=== PATIENT | male | born 1965 | race Hispanic/Latino ===

== ENCOUNTER 2018-01-08 17:56 | Inpatient (IN) | payer MEDICAID ==
[2018-01-08 17:57] VITALS: BMI 21.9
[2018-01-08] MEDS ORDERED: Sodium Chloride 0.9% 0 ML ONE (18:13)
[2018-01-08] MEDS ORDERED: Iodixanol 320 MG/ML 100 ML BOTTLE IV ONE (18:14)
--- NOTE | 2018-01-08 18:18 | C.PDOC ---
History Of Present Illness 52 y/o male brought in by ambulance for evaluation after seizure. Family states the patient had just showered and was standing on a chair when he suddenly became contracted and began shaking, and fell off the chair. EMS was then called at 17:15 at onset of symptoms. Family witnessed the fall but are not sure if patient hit his head directly. Of note, patient had a stroke last February with some resulting weakness. When EMS arrived patient had stable vitals but was not answering questions or responding to commands. Ketamine 80 mg was given in the field. On arrival to the ED patient is awake and responds to verbal stimuli but not following commands. Time Seen by Provider: 01/08/18 18:04 Chief Complaint (Nursing): Altered Mental Status History Per: Patient History/Exam Limitations: Clinical Condition Onset/Duration Of Symptoms: Mins (x 45) Current Symptoms Are (Timing): Still Present Exacerbating Factor(s): Unknown Past Medical History Reviewed: Historical Data, Nursing Documentation, Vital Signs Vital Signs: Last Vital Signs Temp 98.5 F 01/08/18 18:27 Pulse 107 H 01/08/18 18:27 Resp 20 01/08/18 18:27 BP 141/85 01/08/18 18:31 Pulse Ox 98 01/08/18 18:57 - Medical History PMH: Asthma, CVA Denies: Chronic Kidney Disease - [facility] Procedures EXERCISE TREATMENT OF MUSCULOSK WHOLE USING ASSIST EQUIPMENT (04/14/17) GAIT TRAINING/AMBULAT TREATMENT USING ASSIST EQUIPMENT (04/14/17) GROOMING/PERSONAL HYGIENE TREATMENT USING ASSIST EQUIPMENT (04/14/17) Family History: States: No Known Family Hx - Social History Hx Alcohol Use: Yes Hx Substance Use: Yes Review Of Systems Review Of Systems: ROS cannot be obtained secondary to pt's inabilty to answer questions. Physical Exam - Physical Exam Skin: Warm, Dry Head: Atraumatic, Normacephalic Eye(s): bilateral: Normal Inspection, PERRL, EOMI Nose: Normal Oral Mucosa: Moist Neck: Normal ROM, Supple Chest: Symmetrical Cardiovascular: Rhythm Regular Respiratory: Normal Breath Sounds, No Rales, No Rhonchi, No Wheezing Gastrointestinal/Abdominal: Soft, No Tenderness, No Distention Extremity: No Deformity, No Swelling, Other (Non-purposeful movement of extremities) Pulses: Left Dorsalis Pedis: Normal, Right Dorsalis Pedis: Normal Neurological/Psych: Other (Awake, alert, verbal) Gait: Unable To Assess Other Neurological Findings: No Facial Palsy ED Course And Treatment - Laboratory Results Result Diagrams: 01/08/18 18:43 01/08/18 18:43 O2 Sat by Pulse Oximetry: 98 (RA) Pulse Ox Interpretation: Normal Critical Care Time - Critical Care Note Total Time (in mins): 60 Documented critical care: time excludes all time spent performing seperately billable procedures. NIHSS Stroke Scale - Date/Time Evaluation Performed Date Performed: 01/08/18 Time Performed: 18:04 When Was NIHSS Performed: Baseline - How Severe is the Stoke Level of Consciousness: 0=Alert LOC to Questions: 0=Both comments correct LOC to commands: 0=Obeys both correctly Best Gaze: 0=Normal Visual: 0=No visual loss Facial: 1=Minor asymmetry Motor Arm - Left: 2=Falls before 10 sec Motor Arm - Right: 0=No drift Motor Leg - Left: 2=Falls before 5 sec Motor Leg - Right: 0=No drift Limb Ataxia: 1=Present Upper or Lower Sensory: 0=Normal Best Language: 0=No aphasia Dysarthia: 1=Mild to moderate slurring Extinction & Inattention (Neglect): 0=Normal, no object Score: 7 Severity Of Stroke: 5-15= Moderate Stroke rTPA Inclusion/Exclusion - Refusal of Treatment Patient Refused Treatment: No - Inclusion Criteria for Altepase Patient is 18 years or Older: Yes Clinical DX Ischemic Stroke Cause Neurological Deficit: No Time of Onset Established Less Than 270 Mins Before TX Begin: Yes Risk/Benefit Discussed With Patient/Family Member Present: No Medical Decision Making Medical Decision Makin Stroke Alert called Orders placed: * Blood type and screen * CMP * Lipid Panel * Troponin I * HbA1c * CBC * PTT * PT * Chest x-ray * EKG * CT Head * CTA Head/Neck * Stroke Team paged [phone] Discussed w/ Dr. Vasquez, patient is not a candidate for tPA. Requests patient be admitted to tele, and will have EEG in the AM. Disposition - Disposition Disposition Time: 19:20 Condition: FAIR Forms: [employer] (Ukrainian) - Clinical Impression Clinical Impression: Seizure-like activity, CVA, old, hemiparesis - Scribe Statement The provider has reviewed the documentation as recorded by the Galilea Tapia Provider Attestation: All medical record entries made by the Scribe were at my direction and personally dictated by me. I have reviewed the chart and agree that the record accurately reflects my personal performance of the history, physical exam, medical decision making, and the department course for this patient. I have also personally directed, reviewed, and agree with the discharge instructions and disposition.
[2018-01-08 18:46] LABS: BASO # 0.1 K/uL (0.0-0.2); BASO % 0.9 % (0.0-2.0); EOS # 0.2 K/uL (0.0-0.7); EOS % 1.4 % (0.0-4.0); HEMOGLOBIN 13.2 g/dL (12.0-18.0); LYMPH # 3.1 K/uL (1.0-4.3); LYMPH % 22.7 % (20.0-40.0); MEAN CELL VOLUME 90.9 fL (80.0-94.0); MEAN CORPUSCULAR HEMOGLOBIN 30.6 pg (27.0-31.0); MEAN CORPUSCULAR HGB CONC 33.7 g/dL (33.0-37.0); MEAN PLATELET VOLUME 7.8 fL (7.2-11.7); MONO # 0.9 K/uL (0.0-0.8); MONO % 6.6 % (0.0-10.0); NEUT # 9.4 K/uL (1.8-7.0); NEUT % 68.4 % (50.0-75.0); RBC 4.31 Mil/uL (4.40-5.90); WHITE BLOOD COUNT 13.8 K/uL (4.8-10.8)
--- NOTE | 2018-01-08 18:47 | CT ---
PROCEDURE: CT HEAD WITHOUT CONTRAST. HISTORY: Code Stroke COMPARISON: None available. TECHNIQUE: Axial computed tomography images were obtained through the head/brain without intravenous contrast. Radiation dose: Total exam DLP = 1583.25 mGy-cm. This CT exam was performed using one or more of the following dose reduction techniques: Automated exposure control, adjustment of the mA and/or kV according to patient size, and/or use of iterative reconstruction technique. FINDINGS: HEMORRHAGE: No intracranial hemorrhage. BRAIN: Examination is compromised by excessive motion artifact despite multiple series being performed to attempt a counter motion. A large mid to inferior right MCA sub distribution chronic infarct is identified with prominent cystic encephalomalacia affecting majority of the right temporal lobe and limited portion of the posterior right frontal lobe. Minimal involvement of the right parietal lobe is suggested anteroinferiorly as well VENTRICLES: Unremarkable. No hydrocephalus. CALVARIUM: Unremarkable. PARANASAL SINUSES: Unremarkable as visualized. No significant inflammatory changes. MASTOID AIR CELLS: Unremarkable as visualized. No inflammatory changes. OTHER FINDINGS: None. IMPRESSION: Limited examination due to motion artifacts. A large right sub MCA chronic infarct is identified with no definitive intracranial hemorrhage or mass effect appreciated. No obvious pattern of acute separate brain infarction identified however the study is limited as discussed above. No gross intracranial hemorrhage appreciable. Performing and reformatting added series has extended the normal processing time for this CT examination. Findings discussed with Dr. Fernandez with written down and read back verification 01/08/2018 6:38 p.m..
[2018-01-08 18:54] LABS: PROTHROMBIN TIME 10.8 SECONDS (9.7-12.2)
[2018-01-08 18:59] LABS: ALB/GLOB RATIO 1.2 (1.0-2.1); ALBUMIN 3.4 g/dL (3.5-5.0); ALT/SGPT 18 U/L (21-72); AST/SGOT 19 U/L (17-59); BLOOD UREA NITROGEN 10 mg/dL (9-20); CALCIUM 8.1 mg/dl (8.6-10.4); GFR AFRICAN-AMERICAN > 60; GFR NON-AFRICAN AMERICAN > 60; HDL CHOLESTEROL 47 mg/dL (30-70)
[2018-01-08 19:10] LABS: LDL CHOLESTEROL 82 mg/dL (0-129)
[2018-01-08] MEDS ORDERED: Valproate 1,000 MG in Sodium Chloride 0.9% 100 ML IVPB ONE (19:13)
--- NOTE | 2018-01-08 19:28 | CP.PCM.CON ---
History of Present Illness - History of Present Illness History of Present Illness: Mr. Elizabeth is a 52-year-old man with a past medical history of previous right MCA stroke and residual left side weakness (much of which resolved), who was taking a shower and become confused. Afterward, he went to the kitchen and had his bathrobe on, but then started to contract his upper arms, fell to the ground and had a generalized tonic-clonic seizure (by description). He woke up with agitation and confusion. He still does not recall what took place. Review of Systems - Review of Systems All systems: reviewed and no additional remarkable complaints except Past Patient History - Infectious Disease Hx of Infectious Diseases: None - Past Medical History & Family History Past Medical History?: Yes - Past Social History Smoking Status: Light Smoker < 10 Cigarettes Daily - CARDIAC Hx Cardiac Disorders: Yes Other/Comment: implanted loop recorder 04/10/17 - PULMONARY Hx Asthma: Yes - NEUROLOGICAL Hx Neurological Disorder: No Other/Comment: hx of cva in may 2017 with deficits to left arm and slurred speech. - HEENT Hx HEENT Problems: No - RENAL Hx Chronic Kidney Disease: No - ENDOCRINE/METABOLIC Hx Endocrine Disorders: No - HEMATOLOGICAL/ONCOLOGICAL Hx Blood Disorders: No - INTEGUMENTARY Hx Psoriasis: Yes - MUSCULOSKELETAL/RHEUMATOLOGICAL Hx Musculoskeletal Disorders: No Hx Falls: No - GASTROINTESTINAL Hx Gastrointestinal Disorders: No - GENITOURINARY/GYNECOLOGICAL Hx Genitourinary Disorders: No - PSYCHIATRIC Hx Substance Use: Yes - SURGICAL HISTORY Hx Surgeries: No Other/Comment: unknown at the time of triage 01/08 1818 - ANESTHESIA Hx Anesthesia: No Meds Allergies/Adverse Reactions: Allergies Allergy/AdvReac Type Severity Reaction Status Date / Time No Known Allergies Allergy Verified 01/08/18 18:03 - Medications Medications: Current Medications Valproate Sodium 1,000 mg/ (Sodium Chloride) 110 mls @ 100 mls/hr IVPB ONCE ONE Stop: 01/08/18 20:18 Physical Exam - Neurological Exam Neurological exam: Abnormal Gait, Altered, CN II-XII Intact, Oriented x3 Additional comments: Left side strength is 4/5 upper and lower extremities. He has a right gaze preference. Sensation was intact. NIHSS = 3 (chronic) Results - Vital Signs Recent Vital Signs: Last Vital Signs Temp 98.5 F 01/08/18 18:27 Pulse 107 H 01/08/18 18:27 Resp 20 01/08/18 18:27 BP 141/85 01/08/18 18:31 Pulse Ox 98 01/08/18 19:19 - Labs Result Diagrams: 01/08/18 18:43 01/08/18 18:43 Labs: Laboratory Results - last 24 hr 01/08/18 01/08/18 01/08/18 18:05 18:43 18:43 WBC 13.8 H RBC 4.31 L Hgb 13.2 Hct 39.2 MCV 90.9 MCH 30.6 MCHC 33.7 RDW 14.0 Plt Count 323 MPV 7.8 Neut % (Auto) 68.4 Lymph % (Auto) 22.7 [place] % (Auto) 6.6 Eos % (Auto) 1.4 Baso % (Auto) 0.9 Neut # (Auto) 9.4 H Lymph # (Auto) 3.1 [place] # (Auto) 0.9 H Eos # (Auto) 0.2 Baso # (Auto) 0.1 PT 10.8 INR 1.0 APTT 26 Sodium Potassium Chloride Carbon Dioxide Anion Gap BUN Creatinine Est GFR ( Amer) Est GFR (Non-Af Amer) POC Glucose (mg/dL) 118 H Random Glucose Hemoglobin A1c Calcium Total Bilirubin AST ALT Alkaline Phosphatase Troponin I Total Protein Albumin Globulin Albumin/Globulin Ratio Triglycerides Cholesterol LDL Cholesterol Direct HDL Cholesterol 01/08/18 01/08/18 18:43 18:43 WBC RBC Hgb Hct MCV MCH MCHC RDW Plt Count MPV Neut % (Auto) Lymph % (Auto) [place] % (Auto) Eos % (Auto) Baso % (Auto) Neut # (Auto) Lymph # (Auto) [place] # (Auto) Eos # (Auto) Baso # (Auto) PT INR APTT Sodium 142 Potassium 2.7 L Chloride 104 Carbon Dioxide 21 L Anion Gap 20 BUN 10 Creatinine 0.8 Est GFR ( Amer) > 60 Est GFR (Non-Af Amer) > 60 POC Glucose (mg/dL) Random Glucose 113 H Hemoglobin A1c 5.5 Calcium 8.1 L Total Bilirubin 0.2 AST 19 ALT 18 L Alkaline Phosphatase 53 Troponin I < 0.0120 Total Protein 6.3 Albumin 3.4 L Globulin 2.9 Albumin/Globulin Ratio 1.2 Triglycerides 81 Cholesterol 141 LDL Cholesterol Direct 82 HDL Cholesterol 47 - Imaging and Cardiology CT scan - head Status: Image reviewed by me, Report reviewed by me (Encephalomalacia from previous right MCA stroke. ) Assessment & Plan (1) Seizure Assessment and Plan: Likely due to previous stroke. Will start the patient on Depakote with initial loading dose of 1000 mg and continue 500 mg Q12 IV. The patient is clinically at his usual baseline at this time. Will monitor overnight and if stable, may obtain EEG and MRI as outpatient. Aspirin 81 mg daily for secondary stroke prevention. Will check lipids, HbA1c, B12, folate, Vitamin D levels and obtain infectious work-up. Thank you. Status: Acute Priority: High
--- NOTE | 2018-01-08 20:44 | CT ---
PROCEDURE: CT Angiography of the Brain. HISTORY: code stroke COMPARISON: None available. TECHNIQUE: CT angiography of the intracranial and cervical arteries was performed. Coronal and sagittal maximum intensity projection reformatted images were generated. Contrast Dose: Visipaque 320, 100 cc Radiation dose:Total exam DLP = 603.07 mGy-cm. This CT exam was performed using one or more of the following dose reduction techniques: Automated exposure control, adjustment of the mA and/or kV according to patient size, and/or use of iterative reconstruction technique. FINDINGS: INTERNAL CEREBRAL ARTERIES: Unremarkable. The skull base, petrous, cavernous and supraclinoid segments are bilaterally widely patent. ANTERIOR CEREBRAL ARTERIES: Unremarkable. A1 and A2 segments are widely patent. Smaller distal branches unremarkable, as visualized. MIDDLE CEREBRAL ARTERIES: Unremarkable. M1 and M2 segments are widely patent. Perisylvian branches grossly symmetric. POSTERIOR CIRCULATION: Basilar Artery: Unremarkable. Distal Vertebral Arteries: Hypoplastic distal left vertebral artery with a robust appearing distal right vertebral artery. Posterior Cerebral Arteries: Unremarkable. Posterior Inferior Cerebellar Arteries: Unremarkable. NECK CTA: Common Carotid arteries: The bilateral common carotid appear widely patent from their origins to their bifurcations with no significant stenosis appreciated. No evidence to suggest common carotid artery dissection. Internal Carotid arteries: No significant stenosis is appreciated throughout the cervical internal carotid artery segments bilaterally and there is no evidence of dissection either. External Carotid arteries: Appear unremarkable bilaterally. Vertebral arteries: The bilateral vertebral arteries appear patent from their origins to their junction with the basilar artery. However, the distal left vertebral artery is hypoplastic. No significant stenosis or definite pattern of dissection. ANEURYSM/ VASCULAR MALFORMATIONS: None. OTHER FINDINGS: None. IMPRESSION: Unremarkable CT Angiography of the Brain. CT angiography of the neck is remarkable only for hypoplastic distal left vertebral artery.
[2018-01-08] MEDS ORDERED: Valproate 500 MG in Sodium Chloride 0.9% 100 ML IVPB SCH (21:45)
[2018-01-08] MEDS ORDERED: Dextrose 5%-0.225% NS 1,000 ML IV ONE (22:22)
[2018-01-08] MEDS: Dextrose 5%/0.45% NS 1,000 ML IV SCH (22:23)
[2018-01-09 01:01] VITALS: RESP 20
--- NOTE | 2018-01-09 07:16 | RAD ---
Chest x-ray single frontal view History: Code stroke. Comparison: None available. Findings: Mild venous congestion. Right hilar prominence. Biapical pleural thickening with upper lobe granulomatous changes. Battery device projects over the left elizabeth thorax. Heart size within normal limits. Degenerative changes in the spine and shoulders. Impression: Mild venous congestion. Right hilar prominence. Biapical pleural thickening with upper lobe granulomatous changes. Battery device projects over the left elizabeth thorax.
[2018-01-09] MEDS: Valproate 500 MG in Sodium Chloride 0.9% 100 ML IVPB SCH ×2 (07:41→18:54)
[2018-01-09] MEDS: Dextrose 5%/0.45% NS 1,000 ML IV SCH ×2 (07:45→18:55)
[2018-01-09] MEDS: Enoxaparin 40 mg Syringe SC SCH (09:15)
--- NOTE | 2018-01-09 14:40 | CP.PCM.PN ---
Subjective - Date & Time of Evaluation Date of Evaluation: 01/09/18 Time of Evaluation: 14:38 - Subjective Subjective: Mr. Elizabeth was seen and examined today at bedside. He said that he was feeling much more clear thinking today and did not have any residual weakness other than his baseline weakness from the previous stroke. There were no reported seizures and there were no acute events overnight. Objective - Vital Signs/Intake and Output Vital Signs (last 24 hours): Temp Pulse Resp BP Pulse Ox 98.1 F 68 20 113/68 96 01/09/18 07:00 01/09/18 12:00 01/09/18 07:00 01/09/18 07:00 01/09/18 07:00 Intake and Output: 01/09/18 01/09/18 06:59 18:59 Intake Total 1200 Output Total 700 Balance -700 1200 - Medications Medications: Current Medications Enoxaparin Sodium (Lovenox) 40 mg SC DAILY [facility] Last Admin: 01/09/18 09:15 Dose: 40 mg Dextrose/Sodium Chloride (Dextrose 5%/0.45% Ns 1000 Ml) 1,000 mls @ 100 mls/hr IV .Q10H [facility] Last Admin: 01/09/18 07:45 Dose: 100 mls/hr Valproate Sodium 500 mg/ (Sodium Chloride) 105 mls @ 100 mls/hr IVPB Q12H [facility] Last Admin: 01/09/18 07:41 Dose: 100 mls/hr - Labs Labs: 01/08/18 18:43 01/08/18 18:43 PT 10.8 SECONDS (9.7-12.2) 01/08/18 18:43 INR 1.0 01/08/18 18:43 APTT 26 SECONDS (21-34) 01/08/18 18:43 - Neurological Exam Neurological Exam: Abnormal Gait, Alert, Awake, CN II-XII Intact, Oriented x3 Neuro motor strength exam: Left Upper Extremity: 4, Right Upper Extremity: 5, Left Lower Extremity: 4, Right Lower Extremity: 5 Assessment and Plan (1) Seizure Assessment & Plan: Will continue depakote 500 mg BID and follow up with outpatient EEG and MRI. I provided the patient with my contact information for outpatient follow-up. Thank you. Status: Acute
--- NOTE | 2018-01-09 20:12 | CP.PCM.PN ---
Subjective - Date & Time of Evaluation Date of Evaluation: 01/11/18 Time of Evaluation: 18:00 - Subjective Subjective: PGY 2- Medicine Note- Dr. Rider's service Patient seen and examined in no apparent acute distress. Patient states that he experienced a seizure-type experience while sitting in the kitchen at home the day prior. He states that he felt his body shaking at the time. He states that he slowly made his way to the floor when the event took place. He denies any apparent trauma. He states that he called a neighbor afterwards for help. He denies current chest pain, palpitations, headaches or paresthesias at this time. PMHx- CVA in 2017 Surgical Hx- Denies Fam Hx- denies Meds: ASA 81 mg Social Hx- Admits to marijuana use in the past Allergies- NKDA Objective - Vital Signs/Intake and Output Vital Signs (last 24 hours): Temp Pulse Resp BP Pulse Ox 98.2 F 69 20 107/66 98 01/09/18 15:30 01/09/18 15:30 01/09/18 15:30 01/09/18 15:30 01/09/18 15:30 Intake and Output: 01/09/18 01/10/18 18:59 06:59 Intake Total 1200 Balance 1200 - Medications Medications: Current Medications Enoxaparin Sodium (Lovenox) 40 mg SC DAILY [facility] Last Admin: 01/09/18 09:15 Dose: 40 mg Dextrose/Sodium Chloride (Dextrose 5%/0.45% Ns 1000 Ml) 1,000 mls @ 100 mls/hr IV .Q10H [facility] Last Admin: 01/09/18 18:55 Dose: 100 mls/hr Valproate Sodium 500 mg/ (Sodium Chloride) 105 mls @ 100 mls/hr IVPB Q12H [facility] Last Admin: 01/09/18 18:54 Dose: 100 mls/hr - Labs Labs: 01/08/18 18:43 01/08/18 18:43 PT 10.8 SECONDS (9.7-12.2) 01/08/18 18:43 INR 1.0 01/08/18 18:43 APTT 26 SECONDS (21-34) 01/08/18 18:43 - Constitutional Appears: Non-toxic, No Acute Distress - Head Exam Head Exam: ATRAUMATIC, NORMAL INSPECTION - Eye Exam Eye Exam: EOMI Pupil Exam: NORMAL ACCOMODATION - ENT Exam ENT Exam: Normal Exam - Neck Exam Neck Exam: Full ROM - Respiratory Exam Respiratory Exam: NORMAL BREATHING PATTERN - Cardiovascular Exam Cardiovascular Exam: +S1, +S2 - GI/Abdominal Exam GI & Abdominal Exam: Soft, Normal Bowel Sounds - Extremities Exam Extremities Exam: Full ROM - Back Exam Back Exam: Full ROM, NORMAL INSPECTION - Neurological Exam Neurological Exam: Alert, Awake, Oriented x3 Neuro motor strength exam: Left Upper Extremity: 4, Right Upper Extremity: 5, Left Lower Extremity: 4, Right Lower Extremity: 5 Additional comments: some decreased sensation on left side noted. ( since stroke in 2017 per patient ) - Psychiatric Exam Psychiatric exam: Flat Affect, Normal Affect, Normal Mood - Skin Skin Exam: Dry, Normal Color Assessment and Plan - Assessment and Plan (Free Text) Assessment: Seizure Head CT- Limited study in light of motion artifact. Refer to complete report. Recommendations for MRI imaging On Depakote 500 mg PO BID Patient to obtain EEG and MRI studies Neurology on the case- F/U recommendations History of CVA Continue ASA 81 mg Prophylactic Measure Lovenox SC GI PPx not indicated
[2018-01-10 01:44] VITALS: O2SAT 96
[2018-01-10] MEDS: Dextrose 5%/0.45% NS 1,000 ML IV SCH ×2 (04:30→06:38)
[2018-01-10] MEDS: Valproate 500 MG in Sodium Chloride 0.9% 100 ML IVPB SCH (06:38)
[2018-01-10 08:01] VITALS: BP 99/64; PULSE 55; TEMP 97.4
[2018-01-10] MEDS: Enoxaparin 40 mg Syringe SC SCH (11:01)
--- NOTE | 2018-01-10 13:40 | CP.PCM.PN ---
Subjective - Date & Time of Evaluation Date of Evaluation: 01/10/18 Time of Evaluation: 13:37 - Subjective Subjective: PT SEEN BY DR. CHAPMAN AND CLEARED FOR D/C HOME TODAY. NEURO NOTE REVIEWED AND PT TO F/U WITH HIM OUTPATIENT; RX GIVEN FOR DEPAKOTE 500 MG PO BID PER NEURO RECOMMENDATIONS. SW TO ARRANGE TRANSPORTATION TO GO HOME; PT HAS ROOMMATE WAITING FOR HIM AT HOME. NOTIFIED PRIMARY RN JAYLIN TO DO MEDS TO BED, PT UNABLE TO PET FOOD DEBONER RX UNTIL TOMORROW. SEE BELOW FOR D/C PLAN. NO FURTHER ORDERS. -LSUGRUE -FOLLOW UP WITH DR. CHAPMAN OR YOUR PRIMARY DOCTOR IN THE OFFICE WITHIN 5-7 DAYS- --CALL THE OFFICE ON FRIDAY TO SCHEDULE AN APPOINTMENT. -FOLLOW UP WITH DR. SMITH (NEUROLOGIST) IN THE OFFICE WITHIN 7-10 DAYS---CALL THE OFFICE ON FRIDAY TO SCHEDULE AN APPOINTMENT. -MAKE SURE YOU TAKE A BABY ASPIRIN (81 MG) ONCE A DAY. -NEW PRESCRIPTION WILL INCLUDE: 1) DEPAKOTE 500 MG (1 TABLET) BY MOUTH TWICE A DAY (START TAKING THIS MEDICATION THIS EVENING AT DINNER TIME; TAKE EACH MORNING AND EVENING). DO NOT SKIP ANY DOSES. -FOR FURTHER QUESTIONS OR CONCERNS, CONTACT DR. CHAPMAN OR DR. SMITH. Objective - Vital Signs/Intake and Output Vital Signs (last 24 hours): Temp Pulse Resp BP Pulse Ox 97.4 F L 55 L 20 99/64 L 96 01/10/18 07:05 01/10/18 08:36 01/10/18 07:05 01/10/18 07:05 01/10/18 07:05 Intake and Output: 01/10/18 01/10/18 06:59 18:59 Intake Total 1920 Output Total 900 Balance 1020 - Medications Medications: Current Medications Enoxaparin Sodium (Lovenox) 40 mg SC DAILY [facility] Last Admin: 01/10/18 11:01 Dose: 40 mg Dextrose/Sodium Chloride (Dextrose 5%/0.45% Ns 1000 Ml) 1,000 mls @ 100 mls/hr IV .Q10H [facility] Last Admin: 01/10/18 06:38 Dose: 100 mls/hr Valproate Sodium 500 mg/ (Sodium Chloride) 105 mls @ 100 mls/hr IVPB Q12H [facility] Last Admin: 01/10/18 06:38 Dose: 100 mls/hr - Labs Labs: 01/08/18 18:43 04 18:43 PT 10.8 SECONDS (9.7-12.2) 01/08/18 18:43 INR 1.0 01/08/18 18:43 APTT 26 SECONDS (21-34) 01/08/18 18:43
--- NOTE | 2018-01-11 10:21 | CARD ---
APPROVED REPORT EKG Measurement Heart [id number] <Conclusion> Sinus tachycardia Otherwise normal ECG
--- NOTE | 2018-01-12 10:00 | HP ---
HISTORY OF PRESENT ILLNESS: A 52-year-old male, admitted to the hospital with complaint of shaking of the body. The patient came to the ER, Code Stroke was activated and was seen by the neurologist with complaint of seizure. The patient was seen here. The patient is not compliant with aspirin therapy. The patient has disability. PHYSICAL EXAMINATION: GENERAL: The patient is awake, alert, and oriented to time and place. VITAL SIGNS: Temperature 98, pulse 70. HEENT: Within normal limits. CHEST: Symmetrical. HEART: Regular. ABDOMEN: Soft. EXTREMITIES: No edema. ASSESSMENT AND PLAN: The patient suffers from seizure. He is on bedrest. MRI. Viola Rider MD
== END 2018-01-10 17:01 | disposition home or self-care (01) | DRG 890 ==
LOC: C.ER 17:56 → C.9E 19:21 → C.6T 22:26
PROVIDERS: ADMIT Internal Medicine Pulmonary Disease; ATTEND Internal Medicine Pulmonary Disease
DX: R56.9 Unspecified convulsions (principal); W07.XXXA Fall from chair, initial encounter; J45.909 Unspecified asthma, uncomplicated; Z91.14 Patient's other noncompliance with medication regimen; I69.354 Hemiplegia and hemiparesis following cerebral infarction affecting left non-dominant side; F17.210 Nicotine dependence, cigarettes, uncomplicated; L40.9 Psoriasis, unspecified; I69.398 Other sequelae of cerebral infarction; G93.89 Other specified disorders of brain

== ENCOUNTER 2018-04-18 20:57 | Inpatient (IN) | payer MEDICAID ==
[2018-04-18 20:57] VITALS: BMI 21.9
--- NOTE | 2018-04-18 21:19 | C.PDOC ---
History Of Present Illness 53 year old male RACHANA presents the ED for an evaluation status post 2 episodes of witnessed seizures. After the first seizure, witness called EMS who witnessed the second seizure. Patient is lethargic following up administration of 2mg of Ativan IV by EMS. Old records reviewed. Patient was in the ED in December with similar presentation. Patient has a prior history of right sided MCA with left sided weakness, resolved. Patient was discharged with Depakote 500mg BID. Unknown if patient is compliant with medications. HPI limited due to patient's condition. Time Seen by Provider: 04/18/18 21:03 Chief Complaint (Nursing): Seizure History Per: Patient History/Exam Limitations: no limitations Recent Seizure Activity Began: Just Before Arrival Number Of Seizures: Multiple (2) Length Of Seizures (Duration): Unknown Quality Of Seizure: Generalized Post-ictal Period: Yes Past Medical History Reviewed: Historical Data, Nursing Documentation, Vital Signs Vital Signs: Last Vital Signs Temp 96.9 F L 04/18/18 21:41 Pulse 117 H 04/18/18 21:42 Resp 21 04/18/18 21:05 BP 138/89 04/18/18 21:05 Pulse Ox 93 L 04/18/18 22:12 - Medical History PMH: Alzheimer's Disease, Asthma, CVA Denies: Chronic Kidney Disease Surgical History: No Surg Hx - [facility] Procedures EXERCISE TREATMENT OF MUSCULOSK WHOLE USING ASSIST EQUIPMENT (04/14/17) GAIT TRAINING/AMBULAT TREATMENT USING ASSIST EQUIPMENT (04/14/17) GROOMING/PERSONAL HYGIENE TREATMENT USING ASSIST EQUIPMENT (04/14/17) Family History: States: No Known Family Hx - Social History Hx Alcohol Use: No Hx Substance Use: Yes - Immunization History Hx Tetanus Toxoid Vaccination: No Hx Influenza Vaccination: No Hx Pneumococcal Vaccination: No Review Of Systems Constitutional: Positive for: Other (Lethargic, ROS limited due to patient's condition ) Neurological: Positive for: Seizures Physical Exam - Physical Exam Appears: Non-toxic Skin: Normal Color, Warm, Dry, No Other (no noted physical trauma ) Head: Atraumatic, Normacephalic Eye(s): bilateral: Other (Constricted but reactive ) Nose: Normal Oral Mucosa: Moist Neck: Normal, Trachea Midline, Supple, Other (Nontender) Chest: Symmetrical Cardiovascular: Rhythm Regular Respiratory: Normal Breath Sounds, No Rales, No Rhonchi, No Wheezing Gastrointestinal/Abdominal: Soft, No Tenderness, No Distention, No Guarding, No Rebound Extremity: Normal ROM Neurological/Psych: Other (Responsive only to stimuli ) Gait: Steady ED Course And Treatment - Laboratory Results Result Diagrams: 04/18/18 21:24 04/18/18 21:24 Lab Interpretation: Abnormal (Elevated WBC 15.8, HCO3 9, Depakote level <10, UDS + marijuana) O2 Sat by Pulse Oximetry: 93 (RA) Pulse Ox Interpretation: Abnormal - CT Scan/US CT Head Other Rad Studies (CT/US): Read By Radiologist, Radiology Report Reviewed CT/US Interpretation: EXAM: CT Head Without Intravenous Contrast. CLINICAL HISTORY: 53 years old, male; Signs and symptoms; Other: Seizure. TECHNIQUE: Axial computed tomography images of the head/brain without intravenous contrast. All CT scans at. this facility use at least one of these dose optimization techniques: automated exposure control; mA. and/or kV adjustment per patient size (includes targeted exams where dose is matched to clinical. indication); or iterative reconstruction. Coronal and sagittal reformatted images were created and reviewed. COMPARISON: CT head 01/08/2018 (report only) . No comparison imaging is available. FINDINGS: Brain: There is no evidence of intracranial hemorrhage. Large area of encephalomalacia involving. the right temporoparietal hemisphere consistent with sequela of remote MCA distribution infarction,. also described in the comparison report. There is mild diffuse superimposed cerebral atrophy. present. Midline shift: No midline shift. Ventricles: The ventricular system demonstrates mild diffuse compensatory enlargement. Bones/joints: The calvarium and skull base are intact. No fracture. Soft tissues: Normal. Vasculature: Dominant right vertebral artery with mild associated ectasia. Atherosclerotic vascular. calcification of the parasellar carotid arteries. Sinuses: Trace mucosal thickening of the frontal sinuses. Mucosal thickening of the ethmoid sinuses. and right greater than left maxillary sinus. Mastoid air cells: The mastoid air cells are clear. Tubes, lines and devices: Partially imaged right sided nasogastric tube. IMPRESSION: 1. No acute intracranial abnormality. 2. Sequela of remote right MCA distribution infarction. Reevaluation Time: 22:49 Reassessment Condition: Improved (Patient now awake and trying to get out of the bed. No focal neuro deficits.) - Physician Consult Information Time Consulting Physician Contacted: 22:49 Physician Contacted: Viola Rider Outcome Of Conversation: Patient to be admitted for seizure precautions and CVA monitoring. Medical Decision Making Medical Decision Making: Plan - CT head - Labs - O2 via sample mask - UA Disposition - Disposition Disposition: HOSPITALIZED Disposition Time: 22:52 Condition: IMPROVED - POA Present On Arrival: None - Clinical Impression Clinical Impression: Seizure - Scribe Statement The provider has reviewed the documentation as recorded by the Scribe Provider Attestation: Jaclyn Soares All medical record entries made by the Scribe were at my direction and personally dictated by me. I have reviewed the chart and agree that the record accurately reflects my personal performance of the history, physical exam, medical decision making, and the department course for this patient. I have also personally directed, reviewed, and agree with the discharge instructions and disposition.
[2018-04-18 21:27] LABS: BASO # 0.2 K/uL (0.0-0.2); EOS # 0.3 K/uL (0.0-0.7); EOS % 1.9 % (0.0-4.0); LYMPH # 6.4 K/uL (1.0-4.3); LYMPH % 40.3 % (20.0-40.0); MEAN CORPUSCULAR HEMOGLOBIN 30.8 pg (27.0-31.0); MEAN CORPUSCULAR HGB CONC 31.6 g/dL (33.0-37.0); MEAN PLATELET VOLUME 8.7 fL (7.2-11.7); MONO # 0.8 K/uL (0.0-0.8); MONO % 4.8 % (0.0-10.0); NEUT # 8.2 K/uL (1.8-7.0); NRBC % 0.1 % (0.0-2.0); RBC 5.04 Mil/uL (4.40-5.90); WHITE BLOOD COUNT 15.8 K/uL (4.8-10.8)
[2018-04-18 21:31] LABS: SQUAMOUS EPITHIAL < 1 /hpf (0-5); URINE BACTERIA RARE (<OCC); URINE BILIRUBIN NEGATIVE (NEGATIVE); URINE BLOOD 1+ (NEGATIVE); URINE CLARITY Hazy (Clear); URINE COLOR Yellow (YELLOW); URINE GLUCOSE (UA) NORMAL (Normal); URINE LEUKOCYTE ESTERASE NEG Leu/uL (Negative); URINE PROTEIN 2+ mg/dL (NEGATIVE); URINE UROBILINOGEN NORMAL mg/dL (0.2-1.0)
[2018-04-18 21:32] LABS: HEMOGLOBIN 15.5 g/dL (12.0-18.0); MEAN CELL VOLUME 97.5 fL (80.0-94.0)
[2018-04-18] MEDS ORDERED: Fosphenytoin 1,000 MG in Sodium Chloride 0.9% 50 ML IV STA (21:55)
[2018-04-18 21:58] LABS: BARBITURATES, UR NEGATIVE (NEGATIVE); BENZODIAZEPINES, UR NEGATIVE (NEGATIVE); OPIATES, UR NEGATIVE (NEGATIVE); PHENCYCLIDINE, UR NEGATIVE (NEGATIVE)
[2018-04-18 22:02] LABS: ALB/GLOB RATIO 1.6 (1.0-2.1); ALBUMIN 4.7 g/dL (3.5-5.0); ALT/SGPT 18 U/L (21-72); AST/SGOT 26 U/L (17-59); BLOOD UREA NITROGEN 11 mg/dL (9-20); CALCIUM 9.7 mg/dl (8.6-10.4); GFR AFRICAN-AMERICAN > 60; GFR NON-AFRICAN AMERICAN > 60
[2018-04-19] MEDS: Enoxaparin 40 mg Syringe SC SCH (10:00)
[2018-04-19] MEDS ORDERED: Pneumococcal 23-Valent Vaccine IM ONE (10:29)
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
--- NOTE | 2018-04-19 12:27 | CT ---
Date of service: 04/18/2018 PROCEDURE: CT HEAD WITHOUT CONTRAST. HISTORY: seizure COMPARISON: None available. TECHNIQUE: Axial computed tomography images were obtained through the head/brain without intravenous contrast. Radiation dose: Total exam DLP = 880.24 mGy-cm. This CT exam was performed using one or more of the following dose reduction techniques: Automated exposure control, adjustment of the mA and/or kV according to patient size, and/or use of iterative reconstruction technique. FINDINGS: HEMORRHAGE: No intracranial hemorrhage. BRAIN: Chronic infarct matter right sub MCA distribution is reiterated affecting the right temporal and frontal lobes once again and minimally the anterior right parietal lobe. No interval acute intracranial findings are appreciable including mass effect or cortical edema. There is no suspicious extra-axial collection identified in the midline brain anatomy is stable. Posterior fossa contents are unremarkable as well, including the brainstem. VENTRICLES: Unremarkable. No hydrocephalus. CALVARIUM: Unremarkable. PARANASAL SINUSES: Within the mucosal inflammatory change identified at bilateral ethmoid air cells. MASTOID AIR CELLS: Unremarkable as visualized. No inflammatory changes. OTHER FINDINGS: None. IMPRESSION: Stable head CT including large right MCA chronic infarct without definite acute intracranial findings at this time. Follow up CT or MRI are available if clinically warranted.
--- NOTE | 2018-04-20 00:32 | CON ---
DATE: 04/19/2018 NEUROLOGY CONSULTATION REASON FOR CONSULTATION: Seizure. HISTORY OF PRESENTING ILLNESS: The patient is a 53-year-old male who has been asked for evaluation of seizure. The patient apparently had two witnessed seizures. The patient in the emergency room was lethargic. The patient was given 2 mg of Ativan by EMS. He has a history of stroke with right-sided weakness. He had a seizure about a month ago. The patient was given medication Depakote to take , the patient was not taking it. Denies any other complaints. REVIEW OF SYSTEMS: Denies any headache, dizziness, chest pain, shortness of breath, abdominal pain, constipation, diarrhea, dysuria, pyuria, cough, or sputum production. PAST MEDICAL HISTORY: Includes cerebrovascular accident. CURRENT MEDICATIONS: Include Abilify, aspirin, Keppra, Lovenox. ALLERGIES: NO KNOWN DRUG ALLERGIES. SOCIAL HISTORY: The patient does smoke cigarettes. Denies use of alcohol. FAMILY HISTORY: Noncontributory to the case. PHYSICAL EXAMINATION: GENERAL: The patient is a middle-aged male, lying on the bed in no acute distress. VITAL SIGNS: His blood pressure is 108/73, heart rate 92 per minute, breathing at a rate of 16 per minute, and temperature is 98.4 degrees Fahrenheit. HEENT: Head is normocephalic and atraumatic. NECK: Supple. There are no carotid bruits. LUNGS: Clear. CVS: S1 and S2 audible. No murmurs. ABDOMEN: Soft and nontender. Bowel sounds are present. NEUROLOGIC EXAMINATION: Mental status: The patient is awake and alert, oriented to time, place, and person. Speech is fluent. Naming and repetition normal. Memory and cognition are intact. Cranial nerve examination: Pupils are 3 mm bilaterally, reactive to light. Visual benitez are full. Extraocular movements are intact. There is no facial asymmetry. Palate is upgoing bilaterally and tongue is midline. Motor examination: Tone is normal. Power is 5/5 bilaterally in all extremities. Reflexes 1+ and symmetrical. Plantars downgoing bilaterally. Cerebellar examination: Dyauie-bh-ahlu shows no dysmetria. Gait is deferred at the moment. LABORATORY DATA: Labs reviewed show WBC 15.8, hemoglobin 15.5, hematocrit 49.2, and platelets of 343. Sodium 143, potassium 4.1, chloride 104, carbon dioxide content of 9, BUN of 11, creatinine 1.1, and glucose of 176. His urine toxicology screen positive for cannabinoids. IMPRESSION: 1. Breakthrough seizures with history of seizure disorder. 2. History of old cerebrovascular accident. RECOMMENDATIONS: 1. The patient had a CT scan of the head done, which showed a large right middle cerebral artery infarct without having any acute intracranial findings. 2. The patient had an MRI of the brain without contrast. 3. The patient was started on Keppra as the patient has been noncompliant with his antiseizure medication. The patient was discharged previously on Depakote; however, he was not taking it. 4. The patient will have seizure precautions. 5. If the patient remains stable, then he may be discharged with outpatient followup. Thank you for the opportunity to participate in the care of this patient. Johan Daniel MD
[2018-04-20] MEDS: Enoxaparin 40 mg Syringe SC SCH (09:30)
--- NOTE | 2018-04-20 09:59 | CP.PCM.PN ---
Subjective - Date & Time of Evaluation Date of Evaluation: 04/20/18 Time of Evaluation: 09:58 - Subjective Subjective: PGY-[address] Barcenas's Service Patient seen and examined at bedside. Per nursing no acute events occurred overnight. Reports an improvement in urinary symptoms. He does still reports some discomfort upon urination. Patient denies any chest pain, shortness of breath, hematuria, fevers, chills, cough, or any other complaints. Objective - Vital Signs/Intake and Output Vital Signs (last 24 hours): Temp Pulse Resp BP Pulse Ox 98 F 74 18 99/65 L 96 04/20/18 07:30 04/20/18 09:09 04/20/18 07:30 04/20/18 07:30 04/20/18 07:30 Intake and Output: 04/20/18 04/20/18 06:59 18:59 Output Total 700 Balance -700 - Medications Medications: Current Medications Aripiprazole (Abilify) 5 mg PO HS [facility] Last Admin: 04/19/18 21:46 Dose: 5 mg Aspirin (Aspirin Chewable) 81 mg PO DAILY [facility] Last Admin: 04/20/18 09:28 Dose: 81 mg Enoxaparin Sodium (Lovenox) 40 mg SC DAILY [facility] Last Admin: 04/20/18 09:30 Dose: 40 mg Levetiracetam (Keppra) 500 mg PO BID [facility] Last Admin: 04/20/18 09:30 Dose: 500 mg Pneumococcal Polyvalent Vaccine (Pneumovax 23 Vaccine) 0.5 ml IM .ONCE ONE Stop: 04/20/18 10:01 Last Admin: 04/20/18 09:31 Dose: 0.5 ml - Labs Labs: 04/18/18 21:24 04/18/18 21:24 - Head Exam Head Exam: ATRAUMATIC, NORMAL INSPECTION, NORMOCEPHALIC - Eye Exam Eye Exam: EOMI, Normal appearance, PERRL Pupil Exam: NORMAL ACCOMODATION, PERRL - ENT Exam ENT Exam: Mucous Membranes Moist - Respiratory Exam Respiratory Exam: Clear to Ausculation Bilateral, NORMAL BREATHING PATTERN. absent: Respiratory Distress - Cardiovascular Exam Cardiovascular Exam: REGULAR RHYTHM, +S1, +S2 - GI/Abdominal Exam GI & Abdominal Exam: Soft, Normal Bowel Sounds. absent: Rigid, Hyperactive Bowel Sounds - Extremities Exam Extremities Exam: Full ROM. absent: Joint Swelling, Tenderness - Neurological Exam Neurological Exam: Alert, Awake, Normal Gait, Oriented x3 Assessment and Plan - Assessment and Plan (Free Text) Assessment: 53 year old male with a past medical history of cva and seizures who comes in for breakthrough seizures. Plan: 1. Breakthrough seizures Likely secondary to patient being non-compliant on medications. -Keppra 500mg PO BID -Neurology consulted. Help appreciated. 2. Signs of paranoia -Psych consulted. Help appreciated. Plan discussed with Attending Dr. Rider. Brandon Segovia, PGY-2
[2018-04-20] MEDS ORDERED: Pneumococcal 23-Valent Vaccine IM ONE (10:00)
--- NOTE | 2018-04-20 11:52 | HP ---
HISTORY OF PRESENT ILLNESS: The patient is a 53-year-old seizures. The patient denies any dysphagia. The patient came to the ER, advised admission. PHYSICAL EXAMINATION: GENERAL: The patient is sleeping. VITAL SIGNS: Temperature 98, pulse 90, blood pressure 120/85. HEENT: Within normal limits. NECK: Supple. CHEST: Symmetrical. HEART: Regular. ABDOMEN: Soft. EXTREMITIES: No edema. ASSESSMENT AND PLAN: The patient suffers from seizure disorder, old cerebrovascular accident. The patient on bed rest, supportive care. Viola Rider MD
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
[2018-04-20 16:57] VITALS: RESP 20
[2018-04-21 07:43] VITALS: BP 116/79; TEMP 98.1; O2SAT 97
[2018-04-21 08:30] VITALS: PULSE 67
--- NOTE | 2018-04-21 08:49 | CP.PCM.PN ---
Subjective - Date & Time of Evaluation Date of Evaluation: 04/21/18 Time of Evaluation: 08:49 - Subjective Subjective: PGY-[address] Rider's Service Patient seen and examined at bedside. Per nursing no acute events occurred overnight. Patient denies any suicidal ideation, homicidal ideation, auditory hallucinations, or visual hallucinations. Patient denies any chest pain, shortness of breath, hematuria, fevers, chills, cough, or any other complaints. Objective - Vital Signs/Intake and Output Vital Signs (last 24 hours): Temp Pulse Resp BP Pulse Ox 98.1 F 67 20 116/79 97 04/21/18 07:00 04/21/18 08:08 04/21/18 07:00 04/21/18 07:00 04/21/18 07:00 Intake and Output: 04/21/18 04/21/18 06:59 18:59 Output Total 300 Balance -300 - Medications Medications: Current Medications Aripiprazole (Abilify) 10 mg PO HS [facility] Last Admin: 04/20/18 21:27 Dose: 10 mg Aspirin (Aspirin Chewable) 81 mg PO DAILY [facility] Last Admin: 04/20/18 09:28 Dose: 81 mg Enoxaparin Sodium (Lovenox) 40 mg SC DAILY [facility] Last Admin: 04/20/18 09:30 Dose: 40 mg Levetiracetam (Keppra) 500 mg PO BID [facility] Last Admin: 04/20/18 17:38 Dose: 500 mg - Labs Labs: 04/18/18 21:24 04/18/18 21:24 Assessment and Plan - Assessment and Plan (Free Text) Assessment: 53 year old male with a past medical history of cva and seizures who comes in for breakthrough seizures. Plan: 1. Breakthrough seizures Likely secondary to patient being non-compliant on medications. -Keppra 500mg PO BID -Neurology consulted. Help appreciated. 2. Signs of paranoia -Psych consulted. Help appreciated. Plan discussed with Attending Dr. Rider. Discharge Instructions: 1. Patient to follow up with PMD within 5-7 days within discharge. 2.Patient advised to follow up with Psychiatry within one week of discharge. 3. Follow up with [facility], [address] [place] [address] 4. Patient should return to hospital for any new or worsening symptoms. Medications: 1.Keppra 500mg PO BID, #60, No refills 2. Aspirin 81mg PO Daily, #30, No refills 3. Abilify 10mg PO HS, #14, No refills Brandon Segovia, PGY-2
[2018-04-21] MEDS: Enoxaparin 40 mg Syringe SC SCH (10:21)
--- NOTE | 2018-04-21 15:08 | CARD ---
APPROVED REPORT Date of service: 04/19/2018 EKG Measurement Heart [id number] <Conclusion> Normal sinus rhythm Normal ECG
== END 2018-04-21 14:57 | disposition home or self-care (01) | DRG 890 ==
LOC: C.ER 20:57 → C.6T 22:54 → C.9E 22:54 → C.6T 04-19 02:14
PROVIDERS: ADMIT Internal Medicine Pulmonary Disease; ATTEND Internal Medicine Pulmonary Disease
DX: G40.909 Epilepsy, unspecified, not intractable, without status epilepticus (principal); F22 Delusional disorders; J45.909 Unspecified asthma, uncomplicated; F17.210 Nicotine dependence, cigarettes, uncomplicated; I69.351 Hemiplegia and hemiparesis following cerebral infarction affecting right dominant side; Z91.14 Patient's other noncompliance with medication regimen

== ENCOUNTER 2018-12-01 13:16 | Observation (INO) | payer MEDICAID ==
[2018-12-01 13:16] VITALS: BMI 21.9
--- NOTE | 2018-12-01 13:32 | C.PDOC ---
History Of Present Illness 53 y/o male,w/PMhx of seizure disorder and CVA, brought to ER by ambulance with family for evaluation of left sided weakness. Family states that he was last known well at 12:30 pm. Patient had some left arm shaking. Patient is non-co mpliant with his medications. Patient is still complaining of left-sided weakness. Denies having fever,chills,CP,SOB, nausea, and vomiting. Time Seen by Provider: 12/01/18 13:29 Chief Complaint (Nursing): Weakness/Neurological Deficit History Per: Patient History/Exam Limitations: no limitations Onset/Duration Of Symptoms: Hrs Current Symptoms Are (Timing): Still Present Severity: Moderate Past Medical History Reviewed: Historical Data, Nursing Documentation, Vital Signs Vital Signs: Last Vital Signs Temp 97.3 F L 12/01/18 13:22 Pulse 113 H 12/01/18 13:22 Resp 18 12/01/18 13:22 BP 115/74 12/01/18 13:22 Pulse Ox 98 12/01/18 13:22 - Medical History PMH: Alzheimer's Disease, Asthma, CVA Denies: Chronic Kidney Disease Other Surgeries: Hx of surgeries - [facility] Procedures EXERCISE TREATMENT OF MUSCULOSK WHOLE USING ASSIST EQUIPMENT (04/14/17) GAIT TRAINING/AMBULAT TREATMENT USING ASSIST EQUIPMENT (04/14/17) GROOMING/PERSONAL HYGIENE TREATMENT USING ASSIST EQUIPMENT (04/14/17) Family History: States: No Known Family Hx - Social History Hx Alcohol Use: Yes Hx Substance Use: Yes - Immunization History Hx Tetanus Toxoid Vaccination: No Hx Influenza Vaccination: No Hx Pneumococcal Vaccination: No Review Of Systems Except As Marked, All Systems Reviewed And Found Negative. Constitutional: Negative for: Fever, Chills Cardiovascular: Negative for: Chest Pain Respiratory: Negative for: Shortness of Breath Gastrointestinal: Negative for: Nausea, Vomiting Neurological: Positive for: Weakness (left sided weakness) Physical Exam - Physical Exam Appears: Non-toxic, No Acute Distress, Other (awake,alert) Skin: Normal Color, Warm, Dry Head: Other (left sided facial droop) Eye(s): bilateral: Normal Inspection Nose: Normal Oral Mucosa: Moist Neck: Supple Chest: Symmetrical Cardiovascular: Rhythm Regular Respiratory: Normal Breath Sounds, No Rales, No Rhonchi, No Wheezing Gastrointestinal/Abdominal: Normal Exam, Soft, No Tenderness, No Guarding, No Re bound Neurological/Psych: Oriented x3, Normal Speech ED Course And Treatment - Laboratory Results Result Diagrams: 12/01/18 13:38 12/01/18 14:12 O2 Sat by Pulse Oximetry: 98 NIHSS Stroke Scale 2 - Date/Time Evaluation Performed Date Performed: 12/01/18 Time Performed: 13:20 When Was NIHSS Performed: Baseline - How Severe is the Stroke Level of Consciousness: 0=Alert LOC to Questions: 0=Both comments correct LOC to commands: 0=Obeys both correctly Best Gaze: 0=Normal Visual: 0=No visual loss Facial: 1=Minor asymmetry Motor Arm - Left: 0=No drift Motor Arm - Right: 1=Drift noted before 10 sec Motor Leg - Left: 0=No drift Motor Leg - Right: 1=Drift before 5 sec Limb Ataxia: 0=Absent Sensory: 0=Normal Best Language: 0=No aphasia Dysarthia: 1=Mild to moderate slurring Extinction & Inattention (Neglect): 0=Normal, no object Score: 4 Medical Decision Making Medical Decision Making: Plan: --Labs --UA --CXR --CT-Head --CTA-Head Updates: Case discussed with . advises treating patient with Keppra. Patient treated with Keppra. Case discussed with . Patient has been admitted under the service of . Disposition Discussed With : Viola Rider Counseled Patient/Family Regarding: Studies Performed, Diagnosis - Disposition Disposition: HOSPITALIZED Disposition Time: 14:28 Condition: GUARDED - POA Present On Arrival: None - Clinical Impression Clinical Impression: Seizure, TIA (transient ischemic attack) - Scribe Statement The provider has reviewed the documentation as recorded by the Scribe Vesna Rojas Provider Attestation: All medical record entries made by the Scribe were at my direction and personally dictated by me. I have reviewed the chart and agree that the record accurately reflects my personal performance of the history, physical exam, medical decision making, and the department course for this patient. I have also personally directed, reviewed, and agree with the discharge instructions and disposition. Decision To Admit - Pt Status Changed To: Hospital Disposition Of: Observation - . Bed Request Type: Telemetry Admitting Physician: Viola Rider Patient Diagnosis: Seizure, TIA (transient ischemic attack)
[2018-12-01 13:44] LABS: BASO # 0.1 K/uL (0.0-0.2); BASO % 0.8 % (0.0-2.0); EOS # 0.2 K/uL (0.0-0.7); EOS % 2.9 % (0.0-4.0); HEMOGLOBIN 14.1 g/dL (12.0-18.0); LYMPH # 4.2 K/uL (1.0-4.3); LYMPH % 52.8 % (20.0-40.0); MEAN CELL VOLUME 95.3 fL (80.0-94.0); MEAN CORPUSCULAR HGB CONC 32.5 g/dL (33.0-37.0); MEAN PLATELET VOLUME 8.1 fL (7.2-11.7); MONO # 0.4 K/uL (0.0-0.8); MONO % 4.8 % (0.0-10.0); NEUT # 3.1 K/uL (1.8-7.0); NEUT % 38.7 % (50.0-75.0); NRBC % 0.1 % (0.0-2.0); RBC 4.53 Mil/uL (4.40-5.90); RED CELL DISTRIBUTION WIDTH 14.4 % (11.5-14.5); WHITE BLOOD COUNT 7.9 K/uL (4.8-10.8)
[2018-12-01 13:51] LABS: PROTHROMBIN TIME 10.8 SECONDS (9.7-12.2)
--- NOTE | 2018-12-01 14:00 | CT ---
Date of service: 12/01/2018 PROCEDURE: CT HEAD WITHOUT CONTRAST. HISTORY: Code stroke COMPARISON: Comparison made with prior CT scan brain 01/08/2018. TECHNIQUE: Axial computed tomography images were obtained through the head/brain without intravenous contrast. Radiation dose: Total exam DLP = 1081.5 mGy-cm. This CT exam was performed using one or more of the following dose reduction techniques: Automated exposure control, adjustment of the mA and/or kV according to patient size, and/or use of iterative reconstruction technique. FINDINGS: HEMORRHAGE: No acute parenchymal, subarachnoid or extra-axial hemorrhage. BRAIN: Redemonstrated is a relatively large chronic appearing infarct involving distal branches of the right temporal and right parietal operculum region extending superiorly into the right parietal and posterior frontal watershed zone. There is also involvement of the left posterolateral basal ganglia. Slight ex vacuo dilatation of the left temporal horn and right lateral ventricle, particularly the left atrium and mid/posterior body of the left lateral ventricle. Note the possibility of a small hyperacute infarct not excluded.. There is very slight Wallerian degeneration of the right cerebral peduncle Moderate generalized volume loss the not withstanding the aforementioned chronic infarct.. VENTRICLES: No obstructive hydrocephalus however ex vacuo dilatation of the right lateral ventricle as detailed above. CALVARIUM: Calvarium intact rate PARANASAL SINUSES: Unremarkable as visualized. No significant inflammatory changes. MASTOID AIR CELLS: Unremarkable as visualized. No inflammatory changes. OTHER FINDINGS: None. IMPRESSION: No acute intracranial hemorrhage. Redemonstrated is a moderately large infarct involving distal branches of the right middle cerebral artery as described. No evidence of acute intracranial hemorrhage. Note the possibility of a small hyperacute infarct not excluded. Ex vacuo dilatation of the right lateral ventricle as described. Moderate generalized volume loss. See above discussion for additional details and findings. The the the the Findings discussed with Dr. Anne at approximately 1:50 p.m. with written down and read back verification.
[2018-12-01] MEDS: Sodium Chloride 0.9% 1,000 ML IV SCH ×2 (14:21→22:46)
[2018-12-01] MEDS ORDERED: Sodium Chloride 0.9% 1,000 ML ONE (14:23)
--- NOTE | 2018-12-01 14:23 | CT ---
Date of service: 2018-12-01 13:38:11 PROCEDURE: CT Angiography of the neck and brain HISTORY: Left sided weakness COMPARISON: Comparison made with concurrent CT scan of the brain. TECHNIQUE: Contiguous axial images of the neck and brain were obtained from the level of the vertex of the skull to the superior mediastinum in the arteriographic phase of enhancement. Coronal and sagittal reformats or also generated. IV contrast dose: 100 cc Visipaque 320 Radiation dose: Total exam DLP = 580.31 mGy-cm. This CT exam was performed using one or more of the following dose reduction techniques: Automated exposure control, adjustment of the mA and/or kV according to patient size, and/or use of iterative reconstruction technique. FINDINGS: The aortic arch is patent with no significant atherosclerotic disease.. Three-vessel arch. The common carotid arteries and carotid bifurcations are widely patent with no evidence of significant stenosis or dissection. The distal internal carotid arteries including the petrous cavernous and supraclinoid segments also patent. Some minor atherosclerotic calcified atherosclerotic plaque seen both carotid siphons right slightly more so than the left side.. There is also some mild asymmetry of the distal cavernous , supraclinoid and M1/M2 segments left-side of which is larger in caliber/more dominant than the right-side likely due to adaptive narrowing of the right sided cerebral vasculature secondary to chronic distal right MCA territory infarction. There asymmetry of the vertebral arteries, right-sided which is larger in caliber/more dominant than the left side. Basilar artery patent. The A1 segments are also asymmetric left-sided however in which is slightly larger in caliber than the right likely due to adaptive narrowing as well.. The distal anterior and posterior cerebral arteries are patent and relatively symmetric. No evidence of large aneurysm nor vascular lesion. OTHER FINDINGS: Chronic appearing bilateral nasal bone fracture deformities are present. Lung apices clear. IMPRESSION: No evidence of dissection, occlusion or significant stenosis of the extracranial on cervical carotid circulation.. Adaptive narrowing of the right-sided cervical and right cerebral internal carotid artery secondary to chronic distal right MCA territory infarct with paucity of enhanced distal right MCA branches.. No evidence of large aneurysm nor vascular malformation.
[2018-12-01 15:03] LABS: URINE BACTERIA RARE (<OCC); URINE BILIRUBIN NEGATIVE (NEGATIVE); URINE BLOOD NEGATIVE (NEGATIVE); URINE CLARITY Clear (Clear); URINE COLOR Yellow (YELLOW); URINE GLUCOSE (UA) NORMAL (Normal); URINE LEUKOCYTE ESTERASE NEG Leu/uL (Negative); URINE PROTEIN NEGATIVE (NEGATIVE); URINE UROBILINOGEN NORMAL mg/dL (0.2-1.0)
[2018-12-01 15:12] LABS: ALB/GLOB RATIO 1.6 (1.0-2.1); ALBUMIN 3.7 g/dL (3.5-5.0); ALT/SGPT 19 U/L (21-72); AST/SGOT 27 U/L (17-59); BLOOD UREA NITROGEN 13 mg/dL (9-20); CALCIUM 8.3 mg/dl (8.6-10.4); GFR NON-AFRICAN AMERICAN > 60; HDL CHOLESTEROL 41 mg/dL (30-70); LDL CHOLESTEROL 94 mg/dL (0-129)
--- NOTE | 2018-12-01 15:41 | RAD ---
Date of service: 12/01/2018 HISTORY: Code Stroke COMPARISON: 01/08/2018 FINDINGS: LUNGS: No active pulmonary disease. PLEURA: No significant pleural effusion identified, no pneumothorax apparent. CARDIOVASCULAR: No aortic atherosclerotic calcification present. Normal cardiac size. No pulmonary vascular congestion. A small cardiac monitoring device is in place. OSSEOUS STRUCTURES: Mild bilateral shoulder arthrosis. VISUALIZED UPPER ABDOMEN: Normal. OTHER FINDINGS: None. IMPRESSION: No active disease. No interval pathology noted.
--- NOTE | 2018-12-01 15:55 | CP.PCM.CON ---
History of Present Illness - History of Present Illness History of Present Illness: Neurology consult dictated. IN brief, Mr. Elizabeth is a patient with a now NIHSS of 2, who has an old right parietal stroke, ischemic and most likely had a seizure today. He is not a TPA candidate as his deficits resolved. I will order Keppra and switch to once daily dosage, as well as MRI BRain. If it is positive, then we will pursue stroke workup. Thank you Dr. Jerry Lerma Neurology Past Patient History - Infectious Disease Hx of Infectious Diseases: None - Past Medical History & Family History Past Medical History?: Yes - Past Social History Smoking Status: Light Smoker < 10 Cigarettes Daily - CARDIAC Hx Cardiac Disorders: Yes Other/Comment: implanted loop recorder 04/10/17 - PULMONARY Hx Asthma: Yes - NEUROLOGICAL Hx Alzheimer's Disease: Yes - HEENT Hx HEENT Problems: No - RENAL Hx Chronic Kidney Disease: No - ENDOCRINE/METABOLIC Hx Endocrine Disorders: No - HEMATOLOGICAL/ONCOLOGICAL Hx Blood Disorders: No - INTEGUMENTARY Hx Dermatological Problems: Yes Hx Psoriasis: Yes - MUSCULOSKELETAL/RHEUMATOLOGICAL Hx Musculoskeletal Disorders: Yes Hx Falls: Yes - GASTROINTESTINAL Hx Gastrointestinal Disorders: No - GENITOURINARY/GYNECOLOGICAL Hx Genitourinary Disorders: No - PSYCHIATRIC Hx Substance Use: Yes - SURGICAL HISTORY Hx Surgeries: Yes Other/Comment: unknown at the time of triage. loop recorder placement - ANESTHESIA Hx Anesthesia: Yes Meds Allergies/Adverse Reactions: Allergies Allergy/AdvReac Type Severity Reaction Status Date / Time No Known Allergies Allergy Verified 12/01/18 13:29 - Medications Medications: Current Medications Aripiprazole (Abilify) 10 mg PO HS [facility] Aspirin (Aspirin Chewable) 81 mg PO DAILY [facility] Enoxaparin Sodium (Lovenox) 40 mg SC DAILY [facility] Sodium Chloride (Sodium Chloride 0.9%) 1,000 mls @ 100 mls/hr IV .Q10H [facility] Last Admin: 12/01/18 14:21 Dose: 100 mls/hr Levetiracetam (Keppra) 500 mg PO BID [facility] Results - Vital Signs Recent Vital Signs: Last Vital Signs Temp 99.4 F 12/01/18 15:31 Pulse 79 12/01/18 15:31 Resp 18 12/01/18 15:31 BP 111/73 12/01/18 15:31 Pulse Ox 99 03/05/19 15:31 - Labs Result Diagrams: 12/01/18 13:38 12/01/18 14:12 Labs: Laboratory Results - last 24 hr 12/01/18 12/01/18 12/01/18 13:19 13:38 13:38 WBC 7.9 RBC 4.53 Hgb 14.1 Hct 43.2 MCV 95.3 H D MCH 31.0 MCHC 32.5 L RDW 14.4 Plt Count 358 MPV 8.1 Neut % (Auto) 38.7 L Lymph % (Auto) 52.8 H [place] % (Auto) 4.8 Eos % (Auto) 2.9 Baso % (Auto) 0.8 Neut # (Auto) 3.1 Lymph # (Auto) 4.2 [place] # (Auto) 0.4 Eos # (Auto) 0.2 Baso # (Auto) 0.1 PT 10.8 INR 1.0 APTT 34 Sodium Potassium Chloride Carbon Dioxide Anion Gap BUN Creatinine Est GFR ( Amer) Est GFR (Non-Af Amer) POC Glucose (mg/dL) 217 H Random Glucose Hemoglobin A1c Calcium Total Bilirubin AST ALT Alkaline Phosphatase Troponin I Total Protein Albumin Globulin Albumin/Globulin Ratio Triglycerides Cholesterol LDL Cholesterol Direct HDL Cholesterol Urine Color Urine Clarity Urine pH Ur Specific [place] Urine Protein Urine Glucose (UA) Urine Ketones Urine Blood Urine Nitrate Urine Bilirubin Urine Urobilinogen Ur Leukocyte Esterase Urine WBC (Auto) Urine RBC (Auto) Urine Bacteria Blood Type Antibody Screen 12/01/18 12/01/18 12/01/18 13:38 14:09 14:12 WBC RBC Hgb Hct MCV MCH MCHC RDW Plt Count MPV Neut % (Auto) Lymph % (Auto) [place] % (Auto) Eos % (Auto) Baso % (Auto) Neut # (Auto) Lymph # (Auto) [place] # (Auto) Eos # (Auto) Baso # (Auto) PT INR APTT Sodium 133 Potassium 3.6 Chloride 99 Carbon Dioxide 17 L Anion Gap 20 BUN 13 Creatinine 0.7 L Est GFR ( Amer) > 60 Est GFR (Non-Af Amer) > 60 POC Glucose (mg/dL) Random Glucose 193 H Hemoglobin A1c 5.6 Calcium 8.3 L Total Bilirubin 0.4 AST 27 ALT 19 L Alkaline Phosphatase 57 Troponin I < 0.0120 Total Protein 6.0 L Albumin 3.7 Globulin 2.3 Albumin/Globulin Ratio 1.6 Triglycerides 81 Cholesterol 150 LDL Cholesterol Direct 94 HDL Cholesterol 41 Urine Color Urine Clarity Urine pH Ur Specific [place] Urine Protein Urine Glucose (UA) Urine Ketones Urine Blood Urine Nitrate Urine Bilirubin Urine Urobilinogen Ur Leukocyte Esterase Urine WBC (Auto) Urine RBC (Auto) Urine Bacteria Blood Type A POSITIVE Antibody Screen Negative 12/01/18 14:36 WBC RBC Hgb Hct MCV MCH MCHC RDW Plt Count MPV Neut % (Auto) Lymph % (Auto) [place] % (Auto) Eos % (Auto) Baso % (Auto) Neut # (Auto) Lymph # (Auto) [place] # (Auto) Eos # (Auto) Baso # (Auto) PT INR APTT Sodium Potassium Chloride Carbon Dioxide Anion Gap BUN Creatinine Est GFR ( Amer) Est GFR (Non-Af Amer) POC Glucose (mg/dL) Random Glucose Hemoglobin A1c Calcium Total Bilirubin AST ALT Alkaline Phosphatase Troponin I Total Protein Albumin Globulin Albumin/Globulin Ratio Triglycerides Cholesterol LDL Cholesterol Direct HDL Cholesterol Urine Color Yellow Urine Clarity Clear Urine pH 5.0 Ur Specific [place] 1.053 H Urine Protein Negative Urine Glucose (UA) Normal Urine Ketones Trace Urine Blood Negative Urine Nitrate Negative Urine Bilirubin Negative Urine Urobilinogen Normal Ur Leukocyte Esterase Neg Urine WBC (Auto) < 1 Urine RBC (Auto) < 1 Urine Bacteria Rare Blood Type Antibody Screen
[2018-12-02] MEDS: Sodium Chloride 0.9% 1,000 ML IV SCH ×4 (02:26→21:54)
--- NOTE | 2018-12-02 07:30 | CP.PCM.PN ---
Subjective - Date & Time of Evaluation Date of Evaluation: 12/02/18 Time of Evaluation: 07:30 - Subjective Subjective: PGY-2 Progress Note: Dr. Rider Service 53 year old male with a past medical history of cva, , asthma, and alzheimer's presents to the hospital after having a witnessed seaizure by his . Patient states he had been non-compliant with his medications for the past year. Patient states he was trying to conserve the pills and would only take them every other day. Patient reports prior to having the seizure his last one was in February of 2018. Patient denies any tongue biting, urinary and fecal incontinence. Patient denies any chest pain, shortness of breath, fevers, chills, dizziness, syncopal episodes, or any other complaints. Medical history: cva, astham, alzheimers Medications: Keppra Allergies: Denies Surgical history: Leonidas Family history: non-contributory Objective - Vital Signs/Intake and Output Vital Signs (last 24 hours): Temp Pulse Resp BP Pulse Ox 98.2 F 64 20 108/63 96 12/01/18 23:35 12/02/18 04:03 12/01/18 23:35 12/01/18 23:35 12/01/18 23:35 - Medications Medications: Current Medications Aripiprazole (Abilify) 10 mg PO HS [facility] Last Admin: 12/01/18 22:45 Dose: 10 mg Aspirin (Aspirin Chewable) 81 mg PO DAILY [facility] Enoxaparin Sodium (Lovenox) 40 mg SC DAILY [facility] Sodium Chloride (Sodium Chloride 0.9%) 1,000 mls @ 100 mls/hr IV .Q10H [facility] Last Admin: 12/02/18 02:26 Dose: 100 mls/hr Levetiracetam (Keppra) 500 mg PO BID [facility] Last Admin: 12/01/18 18:48 Dose: 500 mg - Labs Labs: 12/01/18 13:38 12/01/18 14:12 PT 10.8 SECONDS (9.7-12.2) 12/01/18 13:38 INR 1.0 12/01/18 13:38 APTT 34 SECONDS (21-34) 12/01/18 13:38 - Head Exam Head Exam: ATRAUMATIC, NORMAL INSPECTION - Eye Exam Eye Exam: EOMI, Normal appearance, PERRL Pupil Exam: NORMAL ACCOMODATION - ENT Exam ENT Exam: Mucous Membranes Moist, Normal Oropharynx - Respiratory Exam Respiratory Exam: Clear to Ausculation Bilateral, NORMAL BREATHING PATTERN. absent: Respiratory Distress - Cardiovascular Exam Cardiovascular Exam: REGULAR RHYTHM, +S1, +S2 - GI/Abdominal Exam GI & Abdominal Exam: Soft, Normal Bowel Sounds. absent: Hyperactive Bowel Sounds - Neurological Exam Neurological Exam: Alert, Awake, CN II-XII Intact, Oriented x3 - Psychiatric Exam Psychiatric exam: Normal Affect, Normal Mood - Skin Skin Exam: Dry, Intact, Normal Color, Warm Assessment and Plan - Assessment and Plan (Free Text) Assessment: 53 year old male with a past medical history of cva, alzheimers and asthma presents to the hospital s/p seizure. Plan: 1.Seizure -NIHSS:2 on admission -Patient non-compliant with medications for the past year. -Witnessed at home by . Denies biting lip or tongue or losing fecal or urinary incontinence. Head Ct taken: No acute intracranial hemorrhage. Redemonstrated is a moderately large infarct involving distal branches of the right middle cerebral artery as described. No evidence of acute intracranial hemorrhage. Note the possibility of a small hyperacute infarct not excluded. Ex vacuo dilatation of the right lateral ventricle as described. Moderate generalized volume loss. CTA Head/Neck taken: No evidence of dissection, occlusion or significant stenosis of the extracranial on cervical carotid circulation.. Adaptive narrowing of the right- sided cervical and right cerebral internal carotid artery secondary to chronic distal right MCA territory infarct with paucity of enhanced distal right MCA branches.. No evidence of large aneurysm nor vascular malformation. Neurology Dr. Edwards consulted: -IN brief, Mr. Elizabeth is a patient with a now NIHSS of 2, who has an old right parietal stroke, ischemic and most likely had a seizure today. He is not a TPA candidate as his deficits resolved. I will order Keppra and switch to once daily dosage, as well as MRI BRain. If it is positive, then we will pursue stroke workup. Medications: Keppa loaded in the E.D. Keppra 500mg PO BID NS @100MLS/hr 2.?TIA History of R MCA CVA HcM1W-7.6% Lipid panel: Triglycerides-81 Cholesterol-150 HDL-41 LDL-94 Will f/u with Neurology for further recc's Continue Aspirin 81mg Daily MRI ordered, but cancelled due to patient's inplantable device present. PT/OT 3. hx of Psychosis -Continue Abilify 10mg PO Daily ppx Lovenox 40mg SC Daily GI ppx not indicated at this time. Plan discussed with Attending Dr. Rider. Brandon Segovia, PGY-2
--- NOTE | 2018-12-02 08:12 | CON ---
DATE: 12/01/2018 Neurology consult called by Dr. Anne. HISTORY OF PRESENT ILLNESS: The patient is a 53-year-old right-handed male who has a past medical history of epilepsy and a right temporoparietal stroke. The patient was at home with his girlfriend when she was in the other room and she heard him grunting and breathing heavily. When she came in his right arm was contracted, his eyes were open and he fell down to the floor with shaking. Code stroke was called. Patient came in here and said he had more left handed weakness then he previously had after his last stroke a year ago. He does not know what the etiology of the prior stroke is. When I saw the patient about one hour later, he was back to his baseline which involved mild left-sided weakness, but with intact speech and was able to follow commands. It was noted that he was not a TPA candidate at this time and most likely he had a seizure. CAT scan was done and showed the encephalomalacia lesion in the right temporoparietal region. CT of the head and neck was done and was within normal limits. MRI was not done at that time. NIH stroke scale was approximately 4. Of note, the patient said that he did not take his Keppra twice a day as he is supposed to and only took it once a day. REVIEW OF SYSTEMS: Positive for malaise and for headache. He denies nausea, vomiting, and diarrhea. PHYSICAL EXAMINATION: GENERAL: Patient was alert and oriented x3. He had a left-sided facial droop. HEENT: Pupils equal, round and reactive to light. External eye movements were intact. NEUROLOGIC: Cranial nerves II to XII were normal. Speech was fluent. He is able to name and repeat, and the date, year, the president. There was no apraxia. Motor; there was a left sided drift. Left benzene still utility operator was 3/5. Right benzene still utility operator was 5/5. He was able to move all extremities equally, however, the left lower limb was 4/5. We did not test gait. There was decreased fine touch and pin which is fine for him in the left upper and lower limb. Reflexes are +2 in upper and lower limb bilaterally. Toes are downgoing. There was no clonus. LABORATORY DATA: Within normal limits. 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 He is resistant to taking medications twice daily, so we will load him with 1500 mg IV Keppra now and continue him on 1500 XR of Keppra on outpatient basis. MRI of the brain with contrast to be done tomorrow to rule out remote possibility of stroke. Thank you for this interesting consult. Taryn Edwards MD [id number]
[2018-12-02] MEDS: Enoxaparin 40 mg Syringe SC SCH (09:24)
--- NOTE | 2018-12-02 14:01 | CP.PCM.PN ---
Subjective - Date & Time of Evaluation Date of Evaluation: 12/02/18 Time of Evaluation: 13:57 - Subjective Subjective: Neuro F/U Note: Mr. Elizabeth was evaluated this afternoon at bedside. Pt is known to me from previous hospitalizations. He admits to feeling well today and offers no complaints. States that his initial symptoms resolved; has had no seizures. He admits not being noncompliant with his Keppra at twice a day, but is open to taking it once a day if recommended. Currently he denies h/a, dizziness, visual changes, chest pain, sob, abd pain, n/v/d, paresthesias. Objective - Vital Signs/Intake and Output Vital Signs (last 24 hours): Temp Pulse Resp BP Pulse Ox 98.2 F 74 20 123/74 98 12/02/18 07:00 12/02/18 07:30 12/02/18 07:00 12/02/18 07:00 12/02/18 07:00 - Medications Medications: Current Medications Aripiprazole (Abilify) 10 mg PO HS [facility] Last Admin: 12/01/18 22:45 Dose: 10 mg Aspirin (Aspirin Chewable) 81 mg PO DAILY [facility] Last Admin: 12/02/18 09:26 Dose: 81 mg Enoxaparin Sodium (Lovenox) 40 mg SC DAILY [facility] Last Admin: 12/02/18 09:24 Dose: 40 mg Sodium Chloride (Sodium Chloride 0.9%) 1,000 mls @ 100 mls/hr IV .Q10H [facility] Last Admin: 12/02/18 13:01 Dose: 100 mls/hr Influenza Virus Vaccine (Flucelvax Quad 7254-4115 Syr) 60 mcg IM .ONCE ONE Stop: 12/03/18 14:01 Levetiracetam (Keppra) 500 mg PO BID [facility] Last Admin: 12/02/18 09:24 Dose: 500 mg - Labs Labs: 12/01/18 13:38 12/01/18 14:12 PT 10.8 SECONDS (9.7-12.2) 12/01/18 13:38 INR 1.0 12/01/18 13:38 APTT 34 SECONDS (21-34) 12/01/18 13:38 - Constitutional Appears: Well, Non-toxic, No Acute Distress - Head Exam Head Exam: ATRAUMATIC, NORMAL INSPECTION, NORMOCEPHALIC - Eye Exam Eye Exam: EOMI, Normal appearance, PERRL Pupil Exam: NORMAL ACCOMODATION, PERRL - ENT Exam ENT Exam: Mucous Membranes Moist - Neck Exam Neck Exam: Full ROM, Normal Inspection - Respiratory Exam Respiratory Exam: NORMAL BREATHING PATTERN - Extremities Exam Extremities Exam: Full ROM. absent: Calf Tenderness, Pedal Edema Additional comments: has from to all extremities with some LUE weakness residual form old stroke does have a left arm pronator drift which is from a previous stroke. - Back Exam Back Exam: Full ROM - Neurological Exam Neurological Exam: Alert, Awake, CN II-XII Intact, Oriented x3, Reflexes Normal Neuro motor strength exam: Left Upper Extremity: 4, Right Upper Extremity: 5, Left Lower Extremity: 5, Right Lower Extremity: 5 Additional comments: + left arm pronator drift, however this is from previous stroke with some LUE weakness residual form old stroke All other extremities + FROM No facial asymmetry No tremors No sensory deficits. - Psychiatric Exam Psychiatric exam: Normal Affect, Normal Mood - Skin Skin Exam: Normal Color Assessment and Plan - Assessment and Plan (Free Text) Assessment: A/P: Mr. Elizabeth is a 53 y/o M who was admitted for left sided weakness and seizure. Imaging thus far is negative. He is unable to have a MRI Brain done as he has an implantable cardiac recorder (does not know the name of it or who inserted it; was inserted in April 2017). I spoke with MRI dept and they would need cardiology clearance to do the MRI, and possibly have the recorder reprogrammed. Otherwise, pt is doing well. His symptoms have resolved. Imaging reviewed: -CTA head and neck (12/01/18): No evidence of dissection, occlusion or significant stenosis of the extracranial on cervical carotid circulation.. Adaptive narrowing of the right-sided cervical and right cerebral internal carotid artery secondary to chronic distal right MCA territory infarct with paucity of enhanced distal right MCA branches. No evidence of large aneurysm nor vascular malform ation. -CT head (12/01/18): No acute intracranial hemorrhage. Redemonstrated is a moderately large infarct involving distal branches of the right middle cerebral artery as described. No evidence of acute intracranial hemorrhage. Note the possibility of a small hyperacute infarct not excluded. Ex vacuo dilatation of the right lateral ventricle as described. Moderate generalized volume loss. -Continue seizure precautions. -Recommend to continue Keppra XR 1,5000 mg PO Daily upon d/c. Pt is n oncompliant with Keppra if prescribed twice a day. Please provide rx for Keppra XR. -Notify neuro team of any acute changes in pt's condition. No further recommendations form neuro standpoint. Reconsult prn. Thank you for allowing us to participate in this pt's care. Nataly Padilla, JORDAN, AGRICULTURAL SCIENCES PROFESSOR Discussed with Dr. Edwards
--- NOTE | 2018-12-02 21:36 | HP ---
LOCATION: He is up in room 659. HISTORY OF PRESENT ILLNESS: The patient is not complaining of weakness of the body, but he has had history of CVA in the past, history of seizure, schizophrenia. Patient is non-compliant with seizure medication, he take it for . He patient came to the ER, advised admission. The patient is stable with seizure. PHYSICAL EXAMINATION: GENERAL: The patient is awake, alert, and oriented. VITAL SIGNS: Temperature 98, pulse 90. HEENT: Within normal limits. NECK: Supple. CHEST: Symmetrical. HEART: Regular. ABDOMEN: Soft. EXTREMITIES: No edema. IMPRESSION AND PLAN: Transient ischemic attack with seizure. The patient needs bedrest, neuro checks, supportive care. Viola Rider MD
[2018-12-03 01:14] VITALS: RESP 20
[2018-12-03] MEDS: Sodium Chloride 0.9% 1,000 ML IV SCH (06:04)
--- NOTE | 2018-12-03 07:46 | CP.PCM.PN ---
Subjective - Date & Time of Evaluation Date of Evaluation: 12/03/18 Time of Evaluation: 07:39 - Subjective Subjective: Progress note for Dr. Rider Patient was seen and examined at bedside in no acute distress. Patient has no complaints and reports hes feeling well. He denies chest pain, palpitations, dyspnea, nausea, vomiting, fevers, abdominal pain, leg pain, tremors. Objective - Vital Signs/Intake and Output Vital Signs (last 24 hours): Temp Pulse Resp BP Pulse Ox 98.1 F 56 L 20 121/74 97 12/02/18 23:40 12/03/18 04:54 12/02/18 23:40 12/02/18 23:40 12/02/18 23:40 - Medications Medications: Current Medications Aripiprazole (Abilify) 10 mg PO HS [facility] Last Admin: 12/02/18 21:54 Dose: 10 mg Aspirin (Aspirin Chewable) 81 mg PO DAILY [facility] Last Admin: 12/02/18 09:26 Dose: 81 mg Enoxaparin Sodium (Lovenox) 40 mg SC DAILY [facility] Last Admin: 12/02/18 09:24 Dose: 40 mg Sodium Chloride (Sodium Chloride 0.9%) 1,000 mls @ 100 mls/hr IV .Q10H [facility] Last Admin: 12/03/18 06:04 Dose: Not Given Influenza Virus Vaccine (Flucelvax Quad 1363-0302 Syr) 60 mcg IM .ONCE ONE Stop: 12/03/18 14:01 Levetiracetam (Keppra) 500 mg PO BID [facility] Last Admin: 12/02/18 17:44 Dose: 500 mg - Labs Labs: 12/01/18 13:38 12/01/18 14:12 PT 10.8 SECONDS (9.7-12.2) 12/01/18 13:38 INR 1.0 12/01/18 13:38 APTT 34 SECONDS (21-34) 12/01/18 13:38 - Constitutional Appears: No Acute Distress - Head Exam Head Exam: ATRAUMATIC, NORMAL INSPECTION - Eye Exam Eye Exam: EOMI, Normal appearance - ENT Exam ENT Exam: Mucous Membranes Moist - Respiratory Exam Respiratory Exam: Clear to Ausculation Bilateral, NORMAL BREATHING PATTERN. absent: Rhonchi, Wheezes, Respiratory Distress - Cardiovascular Exam Cardiovascular Exam: REGULAR RHYTHM, +S1, +S2 - GI/Abdominal Exam GI & Abdominal Exam: Soft, Normal Bowel Sounds. absent: Distended, Firm, Guarding, Tenderness - Extremities Exam Extremities Exam: Normal Inspection. absent: Pedal Edema, Tenderness - Neurological Exam Neurological Exam: Alert, Awake, Oriented x3 - Psychiatric Exam Psychiatric exam: Normal Affect, Normal Mood - Skin Skin Exam: Dry, Normal Color, Warm Assessment and Plan - Assessment and Plan (Free Text) Plan: 53 year old male with a past medical history of cva, alzheimers and asthma presents to the hospital s/p seizure. Seizure - NIHSS:2 on admission - Patient non-compliant with medications for the past year. - Witnessed at home by . Denies biting lip or tongue or losing fecal or urinary incontinence. - Neurology Dr. Edwards consulted: * Per neurologist, ischemic and most likely had a seizure today. He is not a TPA candidate as his deficits resolved; will order Keppra and switch to once daily dosage, as well as MRI Brain. If it is positive, then we will pursue stroke workup. * Per neurologist, Recommended to continue Keppra XR 1,5000 mg PO Daily upon d/c. Pt is noncompliant with Keppra if prescribed twice a day. Please provide rx for Keppra XR No further recommendations form neuro standpoint. Imaging: * Head CT: No acute intracranial hemorrhage. Redemonstrated is a moderately large infarct involving distal branches of the right middle cerebral artery as described. No evidence of acute intracranial hemorrhage. Note the possibility of a small hyperacute infarct not excluded. Ex vacuo dilatation of the right lateral ventricle as described. Moderate generalized volume loss. * CTA Head/Neck: No evidence of dissection, occlusion or significant stenosis of the extracranial on cervical carotid circulation.. Adaptive narrowing of the right-sided cervical and right cerebral internal carotid artery secondary to chronic distal right MCA territory infarct with paucity of enhanced distal right MCA branches. No evidence of large aneurysm nor vascular malformation. - Medications: * Keppa loaded in the E.D. * Keppra 500mg PO BID * NS @100MLS/hr TIA? - History of R MCA CVA - [id number]-7.6% - Lipid panel: Triglycerides-81; Cholesterol-150; HDL-41; LDL-94 - Will f/u with Neurology for further recc's - Continue Aspirin 81mg Daily - MRI ordered, but cancelled due to patient's inplantable device present. - PT/OT Hx of Psychosis - Continue Abilify 10mg PO Daily Prophylaxis - Lovenox 40mg SC Daily - GI ppx not indicated at this time. - PT/OT Patient is stable for discharge to home. Patient must continue taking home medication and must take the follow medication as prescribed: Keppra 1500mg PO daily- take 1 tablet by mouth every day. Patient must follow up with PMD within 1-2 weeks of discharge. If symptoms worsen or reoccur, patient should return to the nearest emergency room. Case discussed with and patient seen with Dr. Tereso Gaviria, PGY2
[2018-12-03 08:03] VITALS: PULSE 57
[2018-12-03 08:12] VITALS: BP 116/70; TEMP 97.7; O2SAT 98
[2018-12-03] MEDS: Enoxaparin 40 mg Syringe SC SCH (09:43)
[2018-12-03] MEDS ORDERED: Influenza Vaccine 60 mcg/0.5 mL SYR (4YR UP) IM ONE (14:00)
--- NOTE | 2018-12-03 21:26 | CARD ---
APPROVED REPORT Date of service: 12/01/2018 EKG Measurement Heart [id number] <Conclusion> Normal sinus rhythm Normal ECG
--- NOTE | 2018-12-03 21:28 | CARD ---
APPROVED REPORT Date of service: 12/01/2018 EKG Measurement Heart [id number] <Conclusion> Normal sinus rhythm Normal ECG
== END 2018-12-03 15:59 | disposition home or self-care (01) ==
LOC: C.ER 13:16 → C.6T 14:37
PROVIDERS: ADMIT Internal Medicine Pulmonary Disease; ATTEND Internal Medicine Pulmonary Disease
DX: G45.9 Transient cerebral ischemic attack, unspecified (principal); G40.909 Epilepsy, unspecified, not intractable, without status epilepticus; F20.9 Schizophrenia, unspecified; G30.9 Alzheimer's disease, unspecified; G93.89 Other specified disorders of brain; F17.210 Nicotine dependence, cigarettes, uncomplicated; J45.909 Unspecified asthma, uncomplicated; I69.954 Hemiplegia and hemiparesis following unspecified cerebrovascular disease affecting left non-dominant side; Z91.14 Patient's other noncompliance with medication regimen
CPT/HCPCS: 70450; 70496; 70498; 71045; 80053; 80061; 81001; 82948; 83036; 84484; 85025; 85610; 85730; 86850; 86900; 90471; 90674; 93005; 97116; 97162; 97165; 97530; 99285; G0378; G8978; G8979; G8987; G8988; G8989; J1650; J7030